=== PATIENT | female | born 1970 | race Caucasian/White ===

== ENCOUNTER 2017-04-06 07:30 | Day surgery (SDC) | payer OTHER ==
[~2017-04-06] VITALS: Ht 175.3 cm; Wt 104.5 kg
[~2017-04-06 07:30] MED LIST: OXYC15TA3
[2017-04-06 07:44] VITALS: BP 159/106; PULSE 71; RESP 20; TEMP 97.6; O2SAT 98
[2017-04-06] MEDS ORDERED: COVATAB PO (07:47)
[2017-04-06] MEDS ORDERED: HYDR50TA3 PO (07:47)
[2017-04-06] MEDS ORDERED: CLAR10CA3 PO (07:47)
[2017-04-06] MEDS ORDERED: GABA300C5 PO (07:47)
[2017-04-06] MEDS ORDERED: TIZA4TAB PO (07:47)
[2017-04-06] MEDS ORDERED: LOSA100T PO (07:47)
[2017-04-06] MEDS ORDERED: SODIUM CHLOR 0.9% 1000 ML INJ 1,000 ML IV SCH (08:00)
[2017-04-06 08:40] LABS: BICARBONATE 30.9 MEQ/L (21.0-32.0); CALCIUM 9.1 MG/DL (8.5-10.1); CREATININE 1.02 MG/DL (0.50-1.00)
--- NOTE | 2017-04-06 10:06 | PD.RAD ---
Post Procedure Progress Note Pre Procedure Diagnosis: (1) Facial numbness Post Procedure Diagnosis: (1) Facial numbness Procedure Date: Apr 06, 2017 Supervising Radiologist: Gilberto Guzman Proceduralist/Assist: Shane Leonardo RT(R), RT Naman(R) Anesthesia: Local Plan of Activity Patient to Unit: [facility] Patient Condition: Good See PACS Report for procedural detail/treatment Gilberto Guzman MD Apr 06, 2017 10:06
[2017-04-06 10:10] VITALS: BP 149/98; PULSE 68; RESP 20; TEMP 97.5; O2SAT 99
--- NOTE | 2017-04-06 10:52 | RADRPT ---
EXAM DATE/TIME: 04/06/2017 09:37 [facility] COMPARISON: No previous studies available for comparison. INDICATIONS : Patient with history of left sided facial numbness in need of lumbar puncture. MEDICAL HISTORY : HTN, Cervicalgia, Left jaw pain and numbness for 6 months SURGICAL HISTORY : Cholecystectomy, Tubal ligation, Right knee surgery, Hysterectomy ENCOUNTER: Initial ACUITY: 4 - 6 months PAIN SCORE: 6/10 LOCATION: Left facial/jaw LUMBAR PUNCTURE TIME: 0959 hours FLUORO TIME: 0.2 minutes IMAGE SERIES: 0 ACCESS LEVEL: L3-4 OPENING PRESSURE: 27 cm of water CLOSING PRESSURE: Not requested. FLUID: 16 cc of clear CSF was collected and sent to the laboratory for analysis. PROCEDURE : 1. Fluoroscopic guided lumbar puncture. 2. Recording of opening pressure. The risks, benefits and alternatives to the procedure were explained and verbal and written consent w as obtained. The site was prepped in sterile fashion. Full sterile technique was used, including ca p, mask, sterile gloves and gown and a large sterile sheet. Hand hygiene and 2% chlorhexidine and/or betadine/alcohol prep was utilized per protocol for cutaneous antisepsis. The skin and subcutaneous tissues were infiltrated with local anesthetic solution. With fluoroscopic guidance the lumbar thecal sac was punctured at the above level described above and the opening pressure was recorded. The above described fluid was removed without difficulty. The patient tolerated the procedure well and there were no complications. CONCLUSION: Uncomplicated fluoroscopically guided lumbar puncture with pressures as above. Gilberto Guzman MD on April 06, 2017 at 10:50 Board Certified Radiologist. This report was verified electronically.
[2017-04-06 11:07] LABS: TOTAL PROTEIN,CSF 46.9 MG/DL (15.0-45.0)
[2017-04-06 12:10] VITALS: BP 163/113; PULSE 79; RESP 20; O2SAT 100
[2017-04-06 12:19] LABS: CSF LYMPHOCYTES 100 %; CSF NEUTROPHILS 0 %; RBC TUBE #4 0 /MM3; SUPERNATE COLOR TUBE #1 CLEAR (CLEAR); WBC TUBE #4 1 /MM3 (0-10)
[2017-04-08 10:41] LABS: ALBUMIN CSF 24.8 mg/dL (<=27.0); ALBUMIN SERUM 3840 mg/dL (3200 - 4800); IGG CSF 2.7 mg/dL (<=8.1); IGG INDEX CSF 0.52 (<=0.85); IGG SERUM 793 mg/dL (767 - 1590); IGG/ALBUMIN CSF 0.11 (<=0.21); IGG/ALBUMIN SERUM 0.21 (<=0.40); OLIGOCLONAL BANDING CSF 4 bands; OLIGOCLONAL BANDING INTERPRET 0 bands (<4); OLIGOCLONAL BANDING SERUM 4 bands; SYNTHESIS RATE CSF 0.95 mg/24 h (<=12)
[2017-04-08 17:47] LABS: LYME IGG IMMUNOBLOT CSF None Detected bands (None Detected); LYME IGM IMMUNOBLOT CSF None Detected bands (None Detected)
[2017-04-08 17:51] LABS: CSF CRYPTOCOCCUS ANTIGEN NOT DETECTED (NEGATIVE)
[2017-04-08 19:52] LABS: VDRL CSF NON-REACTIVE (NON-REACTVE)
[2017-04-09 10:34] LABS: CSF CRYPTOCOCCUS AG CONF ND (NOT DETECTD)
== END 2017-04-06 12:20 | disposition home or self-care (01) ==
LOC: HROP 07:30 → HRIP 07:33 → HROP 12:20
PROVIDERS: ATTEND Psychiatry & Neurology Neurology
DX: G35 Multiple sclerosis (principal); R20.0 Anesthesia of skin; I10 Essential (primary) hypertension
CPT/HCPCS: 62270; 77003; 80048; 82040; 82042; 82784; 82945; 83873; 83916; 84157; 86403; 86592; 86618; 87015; 87070; 87116; 87205; 87206; 88108; 89051; J7030

== ENCOUNTER → 2017-04-10 | Day surgery (SDC) | payer OTHER ==
[~2017-04-10] VITALS: Ht 175.3 cm; Wt 109.9 kg
[~2017-04-10] MED LIST changes: +CHLORHEXIDINE GLUCONATE 2 % 1 PACK (2 CLOTHS) TOPICAL PRN; +CLAR10CA3 PO; +COVATAB PO; +GABA300C5 PO; +HYDR50TA3 PO; +INSULIN HUMAN REGULAR 1,000 UNITS/10 ML VIAL SQ PRN; +LACTATED RINGER'S 1000 ML IV PRN; +LOSA100T PO; +METOPROLOL TARTRATE 25 MG TAB PO PRN; -OXYC15TA3; +POVIDONE IODINE 5% (ANTISEPSIS KIT) 4 APPLICATIONS EACH NARE PRN; +SODIUM CHLORID 0.9% 500 ML IV PRN; +TIZA4TAB PO
[2017-04-10 11:05] VITALS: BP 148/91; PULSE 72; RESP 18; TEMP 98.3; O2SAT 99
== END | disposition home or self-care (01) ==
LOC: HSDC 08:53
PROVIDERS: ATTEND Anesthesiology
DX: G97.1 Other reaction to spinal and lumbar puncture (principal)
CPT/HCPCS: 62273